=== PATIENT | male | born 1940 | race Caucasian/White ===

== ENCOUNTER 2018-07-30 12:14 | Emergency (ER) | payer MEDICARE ==
[~2018-07-30] VITALS: Ht 170.2 cm; Wt 72.7 kg
[2018-07-30 12:21] VITALS: Ht 170.2 cm; Wt 72.7 kg
[2018-07-30] MEDS ORDERED: VALIUM5 MG PO (12:22)
[2018-07-30] MEDS ORDERED: TORADOL10 MG PO (16:06)
[2018-07-30 16:15] VITALS: BP 138/90
== END 2018-07-30 16:17 | disposition home or self-care (01) ==
LOC: D.ER 12:14
DX: S16.1XXA Strain of muscle, fascia and tendon at neck level, initial encounter (principal); Y93.E9 Activity, other interior property and clothing maintenance; Y92.019 Unspecified place in single-family (private) house as the place of occurrence of the external cause; M62.838 Other muscle spasm